=== PATIENT | male | born 1945 | race Caucasian/White ===

== ENCOUNTER 2017-10-28 07:49 | Day surgery (SDC) | payer MEDICARE, OTHER ==
[~2017-10-28] VITALS: Ht 167.6 cm; Wt 96.4 kg
[~2017-10-28 07:49] MED LIST: ASPI325; ASPI500 PO; FINA5 PO; FISH OIL 1,2001 EAC1 PO; FURO20; GLIM2 PO; LISI20 PO; LISINOPRIL PO; METF500 PO; MULVITMIND PO; NAPR220; NIAC500 PO; POTA10T; SIMVASTATIN PO; SOMA250 MG PO; TAMS.4ER PO
== END 2017-10-28 10:05 | disposition home or self-care (01) ==
LOC: ORSCSDS 07:49
DX: Z12.11 Encounter for screening for malignant neoplasm of colon (principal); D12.4 Benign neoplasm of descending colon; D12.2 Benign neoplasm of ascending colon; K63.5 Polyp of colon; K64.8 Other hemorrhoids; K57.30 Diverticulosis of large intestine without perforation or abscess without bleeding; Z86.010 Personal history of colon polyps; Z86.73 Personal history of transient ischemic attack (TIA), and cerebral infarction without residual deficits; E66.9 Obesity, unspecified; E11.9 Type 2 diabetes mellitus without complications; F17.210 Nicotine dependence, cigarettes, uncomplicated; Z68.34 Body mass index [BMI] 34.0-34.9, adult; Z79.82 Long term (current) use of aspirin; Z79.899 Other long term (current) drug therapy
CPT/HCPCS: 82947; 88305; J7120

== ENCOUNTER → 2020-03-27 | Outpatient (CLI) | payer MEDICARE, OTHER | END | disposition home or self-care (01) | LOC: PLD 08:24 → LAB SHORT 08:24 | DX: C44.529 Squamous cell carcinoma of skin of other part of trunk (principal); L81.4 Other melanin hyperpigmentation | CPT/HCPCS: 88305 ==

== ENCOUNTER → 2020-04-08 | Outpatient (CLI) | payer MEDICARE, OTHER | END | disposition home or self-care (01) | LOC: PLD 08:23 → LAB SHORT 08:23 | DX: C44.82 Squamous cell carcinoma of overlapping sites of skin (principal) | CPT/HCPCS: 88305 ==

== ENCOUNTER → 2020-12-23 | Outpatient (CLI) | payer MEDICARE, OTHER | END | disposition home or self-care (01) | LOC: LAB SHORT 12:26 → LAB 12:26 | DX: L57.0 Actinic keratosis (principal) | CPT/HCPCS: 88305 ==

== ENCOUNTER → 2021-01-06 | Outpatient (CLI) | payer MEDICARE, OTHER | LOC: LAB SHORT 07:56 → LAB 07:56 | DX: D48.5 Neoplasm of uncertain behavior of skin (principal); L81.4 Other melanin hyperpigmentation | CPT/HCPCS: 88305 ==

== ENCOUNTER 2021-09-30 08:14 | Day surgery (SDC) | payer MEDICARE, OTHER ==
[~2021-09-30] VITALS: Ht 167.6 cm; Wt 82.1 kg
[~2021-09-30 08:14] MED LIST changes: +AMLO5 PO; +ATOR80 PO; +FISH OIL 1,2001 EAC4 PO; -FURO20; +FURO20 PO; +GABA300 PO; +LISI5 PO; +SUCROFERRIC OXYHYDROXIDE PO
[2021-09-30] MEDS ORDERED: VITAMIN D3 MA125 MCG (08:41)
[2021-09-30] MEDS ORDERED: Rena-Vite Tabl0.8 MG (08:45)
--- NOTE | 2021-09-30 09:15 | NUR ---
09/30/21 0915 TIFFANIE BORJAS TRIED ON RW INFILTRATED. PUT ON RFA AND WORKED WELL
--- NOTE | 2021-09-30 09:57 | NUR ---
09/30/21 0957 PARUL VELAZQUEZ PREP.END NOTE
== END 2021-09-30 10:35 | disposition home or self-care (01) ==
LOC: ORSCSDS 08:14
PROVIDERS: Internal Medicine Gastroenterology
PROC: 0DJD8ZZ Inspection of Lower Intestinal Tract, Via Natural or Artificial Opening Endoscopic (ICD-10-PCS; principal; 2021-09-30 09:30)
DX: Z12.11 Encounter for screening for malignant neoplasm of colon (principal); Z86.010 Personal history of colon polyps; I10 Essential (primary) hypertension; E11.9 Type 2 diabetes mellitus without complications; Z86.73 Personal history of transient ischemic attack (TIA), and cerebral infarction without residual deficits; I63.9 Cerebral infarction, unspecified; Z87.891 Personal history of nicotine dependence; Z79.899 Other long term (current) drug therapy
CPT/HCPCS: 82947; J2704; J7120

== ENCOUNTER 2022-01-13 10:49 | Day surgery (SDC) | payer MEDICARE, OTHER ==
[~2022-01-13] VITALS: Ht 167.6 cm; Wt 77.5 kg
[~2022-01-13 10:49] MED LIST changes: +Rena-Vite Tabl0.8 MG; +VITAMIN D3 MA125 MCG
== END 2022-01-13 14:10 | disposition home or self-care (01) ==
LOC: ORSCSDS 10:49
DX: Z86.010 Personal history of colon polyps (principal); D12.3 Benign neoplasm of transverse colon; D12.2 Benign neoplasm of ascending colon; K63.5 Polyp of colon; K62.1 Rectal polyp; K57.30 Diverticulosis of large intestine without perforation or abscess without bleeding; K64.4 Residual hemorrhoidal skin tags; K63.89 Other specified diseases of intestine; I12.9 Hypertensive chronic kidney disease with stage 1 through stage 4 chronic kidney disease, or unspecified chronic kidney disease; N18.9 Chronic kidney disease, unspecified; F17.210 Nicotine dependence, cigarettes, uncomplicated; Z86.73 Personal history of transient ischemic attack (TIA), and cerebral infarction without residual deficits; Z79.899 Other long term (current) drug therapy
CPT/HCPCS: 82947; 88305; 93005; 93010; J2704; J7120

== ENCOUNTER 2022-04-14 15:02 | Inpatient (IN) | payer MEDICARE, OTHER ==
[~2022-04-14] VITALS: Ht 170.2 cm; Wt 89.6 kg
[2022-04-14 16:57] LABS: BASOPHILS ABSOLUTE AUTO 0.05 K/mm3 (0.00-0.23); BASOPHILS PERCENT AUTO 0 % (0-2); EOSINOPHILS ABSOLUTE AUTO 0.16 K/mm3 (0.00-0.68); EOSINOPHILS PERCENT AUTO 1 % (0-6); Hematocrit 31.7 % (37.0-53.0); Hemoglobin 10.6 g/dL (13.5-17.5); IMMATURE GRAN ABSOLUTE AUTO 0.04 K/mm3 (0.00-0.10); IMMATURE GRAN PERCENT AUTO 0 % (0-1); LYMPHOCYTES ABSOLUTE AUTO 0.93 K/mm3 (0.84-5.20); LYMPHOCYTES PERCENT AUTO 8 % (21-46); MONOCYTES PERCENT AUTO 7 % (4-13); Mean Corpuscular HGB 30.9 pg (26.0-34.0); Mean Corpuscular HGB Conc 33.4 g/dL (31.5-36.5); Mean Corpuscular Volume 92 fL (80-100); Mean Platelet Volume 9.4 fL (9.1-12.4); NEUTROPHILS ABSOLUTE AUTO 9.25 K/mm3 (1.96-9.15); NEUTROPHILS PERCENT AUTO 82 % (41-73); Platelet Count 241 K/mm3 (150-400); RDW Coefficient Variation 13.2 % (11.7-14.2); RDW Standard Deviation 45.2 fL (35.1-46.3); Red Blood Cell Count 3.43 M/mm3 (4.30-5.90); White Blood Cell Count 11.23 K/mm3 (4.00-11.30)
[2022-04-14 17:05] LABS: Calcium, Ionized (POC) 1.07 mmol/L (1.10-1.46); Chloride (POC) 113 mmol/L (98-108); Creatinine (POC) 16.2 mg/dL (0.8-1.3); Glucose (ISTAT POC) 121 mg/dL (70-99); Hemoglobin (POC) 10.5 g/dL (13.5-17.5); Potassium (POC) 6.4 mmol/L (3.5-5.5); Sodium (POC) 140 mmol/L (135-148); Total CO2 (POC) 18 mmol/L (21-32)
[2022-04-14 17:26] LABS: Albumin, Blood 2.6 g/dL (3.4-5.0); Albumin/Globulin Ratio 0.5 (0.8-1.8); Bilirubin, Total 0.6 mg/dL (0.1-1.0); Bun/Creatinine Ratio 9.9 (12.0-20.0); Creatinine, Blood 14.8 mg/dL (0.60-1.20); Globulin, Blood 5.2 g/dL (2.2-4.0); Potassium, Blood 6.4 mmol/L (3.5-5.5); Total Protein, Blood 7.8 g/dL (6.4-8.2)
[2022-04-14 20:54] LABS: Influenza A, PCR NEGATIVE (NEGATIVE); Influenza B, PCR NEGATIVE (NEGATIVE); SARS-Cov-2 (COVID-19) PCR, MMC NEGATIVE (NEGATIVE)
[2022-04-14 21:02] LABS: Resp Syncytial Virus, PCR POSITIVE (NEGATIVE)
[2022-04-14] MEDS ORDERED: AMLO10 PO (21:44)
[2022-04-14] MEDS ORDERED: LISI5 PO (21:46)
[2022-04-14 21:49] LABS: Base Excess Venous -14.3 mmol/L; Bicarbonate Venous 14.3 mmol/L (24.0-30.0); PCO2 Venous 31.7 mmHg (38-42)
[2022-04-14 21:50] LABS: pH Blood Venous 7.23 (7.34-7.37)
[2022-04-15 02:10] LABS: BASOPHILS ABSOLUTE AUTO 0.05 K/mm3 (0.00-0.23); BASOPHILS PERCENT AUTO 1 % (0-2); EOSINOPHILS ABSOLUTE AUTO 0.09 K/mm3 (0.00-0.68); EOSINOPHILS PERCENT AUTO 1 % (0-6); Hematocrit 29.9 % (37.0-53.0); Hemoglobin 10.4 g/dL (13.5-17.5); IMMATURE GRAN ABSOLUTE AUTO 0.05 K/mm3 (0.00-0.10); IMMATURE GRAN PERCENT AUTO 1 % (0-1); LYMPHOCYTES ABSOLUTE AUTO 0.86 K/mm3 (0.84-5.20); LYMPHOCYTES PERCENT AUTO 9 % (21-46); MONOCYTES ABSOLUTE AUTO 0.78 K/mm3 (0.16-1.47); MONOCYTES PERCENT AUTO 8 % (4-13); Mean Corpuscular HGB 31.6 pg (26.0-34.0); Mean Corpuscular HGB Conc 34.8 g/dL (31.5-36.5); Mean Corpuscular Volume 91 fL (80-100); Mean Platelet Volume 9.3 fL (9.1-12.4); NEUTROPHILS ABSOLUTE AUTO 7.99 K/mm3 (1.96-9.15); NEUTROPHILS PERCENT AUTO 81 % (41-73); Platelet Count 211 K/mm3 (150-400); RDW Coefficient Variation 13.2 % (11.7-14.2); RDW Standard Deviation 44.4 fL (35.1-46.3); Red Blood Cell Count 3.29 M/mm3 (4.30-5.90); White Blood Cell Count 9.82 K/mm3 (4.00-11.30)
[2022-04-15 02:53] LABS: Magnesium, Blood 3.2 mg/dL (1.6-2.4)
[2022-04-15 02:56] LABS: Albumin, Blood 2.5 g/dL (3.4-5.0); Albumin/Globulin Ratio 0.5 (0.8-1.8); Bilirubin, Total 0.7 mg/dL (0.1-1.0); Bun/Creatinine Ratio 9.6 (12.0-20.0); Calcium, Blood 8.7 mg/dL (8.5-10.1); Creatinine, Blood 11.7 mg/dL (0.60-1.20); Phosphorus, Blood 8.3 mg/dL (2.5-4.9); Potassium, Blood 4.9 mmol/L (3.5-5.5); Total Protein, Blood 7.5 g/dL (6.4-8.2)
--- NOTE | 2022-04-15 05:17 | NUR ---
SHIFT SUMMARY I ASSUMED CARE OF THE PT AROUND 2230 LAST NIGHT. HE WAS RECIEVING DIALYSIS AND STARTED TO BECOME RESTLESS, TACHYCARDIC TO THE 160'S, AND HIS BLOOD PRESSURE WAS BOUNCING ALL OVER THE PLACE. HE WAS GIVEN 5MG LOPRESSOR IV AND THE DIALYSIS NURSE STOPPED HIS DIALYSIS. HE RAN FOR ABOUT 80/120MINS. THE PT BECAME LESS TACHYCARDIC, IS NO LONGER RESTLESS, AND HIS BP HAS STARTED TO STABLE OUT AFTER STOPPING DIALYSIS AND GETTING 5MG IV LOPRESSOR. PT IS ALERT AND ORIENTED TO SELF AND FOLLOWS COMMANDS, BUT IS CONFUSED. HE IS NOT ORIENTED AND IS UNABLE TO ANSWER HISTORY QUESTIONS AT THIS TIME. PT IS AFIB 110'S-150'S ON TELEMETRY, SPO2 >90% RA, AND HAS DENIED ANGINA/SOB/N/V. PT HAS BEEN INC DURING THE NIGHT, AND IS A 1P ROLL TO CHANGE. HE MOVES AROUND IND IN BED, BED ALARM ON, BED IN LOW, AND CALL LIGHT IS IN REACH. WILL CONTINUE TO MONITOR UNTIL SHIFT REPORT IS GIVEN TO THE ONCOMING SHIFT RN. SEE NOTES FOR ANY UPDATES
--- NOTE | 2022-04-15 05:48 | NUR ---
TELEMETRY CHANGE PT CONVERTED FROM AFIB 110-150'S TO SR 60'S-70'S AT 0525. PT WAS SLEEPING AT THIS TIME.
--- NOTE | 2022-04-15 17:49 | NUR ---
SHIFT SUMMARY PT HAS BEEN RESTING QUIETLY IN ROOM. PT HAS BEEN ORIENTED TO SELF AND PERSON AND DEMONSTRATED AN INCREASED LEVEL OF CONFUSION IN THE AFTERNOON. PT WAS REDIRECTABLE BUT STILL NOT REORIENTABLE. HEMODIALYSIS WAS PERFORMED IN ROOM. FAMILY MEMBER SPENT SOME TIME AT THE BEDSIDE. VITAL SIGNS HAVE REMAINED STABLE AND WITHIN PT TRENDS.
--- NOTE | 2022-04-15 23:56 | NUR ---
AGITATION AT 0000 VITALS THE PATIENT WAS SLEEPING AND WAS WOKEN UP TO BE CHANGED AND TO OBTAIN A SET OF VITAL SIGNS. HE WAS VERY AGITATED AND HIT STAFF. IT TOOK THREE STAFF MEMBERS TO PROVIDE CARE.THE PT IS NO LONGER BEING COOPERATIVE OR FOLLOWING DIRECTIONS. PT WAS NOT ABLE TO ANSWER ANY ORIENTATION QUESTIONS AT THIS TIME. SITUATION WAS DISCUSSED W/ THE CHARGE NURSE. DUE TO THE PATIENT NOT SLEEPING VERY WELL THE LAST FEW DAYS, WE ARE GOING TO LET HIM REST AND REASSESS. BED IN LOW, THREE SIDE RAILS UP, CALL LIGHT IN REACH, BED ALARM ON. SEE NOTES FOR ANY UPDATES.
--- NOTE | 2022-04-16 05:00 | NUR ---
SHIFT SUMMARY PT WAS A&OX2 AT THE BEGINNING OF THE SHIFT. AT 0000 HE WAS ONLY ALERT TO VERBAL STIMULI AND COULD NOT ANSWER ANY ORIENTATION QUESTIONS. SEE PREVIOUS NOTE FOR MORE INFORMATION. DURING 0400 VS, HE WAS ABLE TO ANSWER SOME ORIENTATION QUESTIONS (SELF, PERSON, FOLLOW COMMANDS). HE APPEARS TO BE MORE COOPERATIVE W/ MALE STAFF. HE HAS HAD ONE INC EPISODE DURING THE NIGHT AND NEEDED 2-3P ASSIST TO WARE EHIM DUE TO AGITATION. PT HAS SLEPT MOST OF THE NIGHT, BEEN SB/SR 50'S-60'S ON TELEMETRY, SP02>90% ON RA, AND DENIES ANGINA/SOB. BED IS IN LOW, THREE SIDE RAILS UP, BED ALARM ON. WILL CONTINUE TO MONITOR UNTIL SHIFT RPOERT IS GIVEN TO THE ONCOMING SHIFT RN. SEE NOTES FOR ANY UPDATES.
[2022-04-16 05:03] LABS: BASOPHILS ABSOLUTE AUTO 0.02 K/mm3 (0.00-0.23); BASOPHILS PERCENT AUTO 0 % (0-2); EOSINOPHILS ABSOLUTE AUTO 0.35 K/mm3 (0.00-0.68); EOSINOPHILS PERCENT AUTO 5 % (0-6); Hematocrit 30.2 % (37.0-53.0); Hemoglobin 10.5 g/dL (13.5-17.5); IMMATURE GRAN ABSOLUTE AUTO 0.02 K/mm3 (0.00-0.10); IMMATURE GRAN PERCENT AUTO 0 % (0-1); LYMPHOCYTES ABSOLUTE AUTO 1.22 K/mm3 (0.84-5.20); LYMPHOCYTES PERCENT AUTO 17 % (21-46); MONOCYTES ABSOLUTE AUTO 0.75 K/mm3 (0.16-1.47); MONOCYTES PERCENT AUTO 11 % (4-13); Mean Corpuscular HGB 30.9 pg (26.0-34.0); Mean Corpuscular HGB Conc 34.8 g/dL (31.5-36.5); Mean Corpuscular Volume 89 fL (80-100); Mean Platelet Volume 9.5 fL (9.1-12.4); NEUTROPHILS ABSOLUTE AUTO 4.69 K/mm3 (1.96-9.15); NEUTROPHILS PERCENT AUTO 67 % (41-73); Platelet Count 274 K/mm3 (150-400); RDW Standard Deviation 42.2 fL (35.1-46.3); White Blood Cell Count 7.05 K/mm3 (4.00-11.30)
[2022-04-16 05:40] LABS: Magnesium, Blood 2.8 mg/dL (1.6-2.4)
[2022-04-16 06:06] LABS: Albumin, Blood 2.3 g/dL (3.4-5.0); Anion Gap 11 mmol/L (6-16); Blood Urea Nitrogen 72 mg/dL (8-24); CO2, Blood 28 mmol/L (21-32); Calcium, Blood 8.2 mg/dL (8.5-10.1); Chloride, Blood 97 mmol/L (98-108); Glucose, Blood 110 mg/dL (70-99); Potassium, Blood 4.4 mmol/L (3.5-5.5); Sodium, Blood 136 mmol/L (136-145)
[2022-04-16 06:27] LABS: Bun/Creatinine Ratio 8.7 (12.0-20.0); Creatinine, Blood 8.25 mg/dL (0.60-1.20); Glomerular Filtration Rate 6 (60-); Phosphorus, Blood 8.3 mg/dL (2.5-4.9)
--- NOTE | 2022-04-16 18:34 | NUR ---
REPORT GIVEN TO MEDICAL FLOOR RN AT 0684.
--- NOTE | 2022-04-16 18:45 | NUR ---
pt arrives to the medical floor via PCU bed propelled by two PCU staff. he is room air. Dialysis fistula in LFA. IV access to RFA. A&o x3. Pleasant and cooperative with staff. ISO for RSV. RN gave report to oncoming nurse.
--- NOTE | 2022-04-16 19:22 | NUR ---
SHIFT SUMMARY/ TRANSFER UPDATE PT A/OX2-3 AND COOPERATIVE OF CARE. VSS THROUGHOUT SHIFT WITH O2 SATS IN THE 90'S ON RA. NO REPORT OF CHEST PAIN/PRESSURE THROUGHOUT SHIFT. NO REPORT OF SOB/DSYPNEA THROUGHOUTH SHIFT. PT SEEN BY PHYSICAL THERAPY, SEE THERAPIST NOTES. PT DID NOT EAT BOTH HIS LUNCH AND DINNER, STATES "I'M JUST NOT REALLY HUNGRY." PT BROTHER VISITED TODAY AND REPORTED THAT THE PT MENTATION HAS "IMPROVED SINCE YESTERDAY," BUT ALSO STATES "I AM NOT READY FOR HIM TO BE HOME YET." PT TRANSFERED TO MEDICAL FLOOR AT 1850 VIA HOSPITAL BED AND ON RA. PT BELONGINGS IN BAGS AND TRANSFERED WITH PT. PT CHART TRANFERED WITH PT ALONG WITH MEDS.
--- NOTE | 2022-04-17 03:52 | NUR ---
SHIFT SUMMARY PCU TRANSFER [facility]. A&O X 3-4. VSS. PLEASANT AND COOPERATIVE WITH STAFF. CALLS APPROPRIATELY. DENIES PAIN. STANDBY ASSIST TO BATHROOM. BED ALARM ON. WILL CONTINUE TO MONITOR AND FOLLOW PLAN OF CARE.
[2022-04-17 07:00] LABS: Hematocrit 32.6 % (37.0-53.0); Hemoglobin 11.4 g/dL (13.5-17.5)
[2022-04-17 08:04] LABS: Albumin, Blood 2.6 g/dL (3.4-5.0); Anion Gap 15 mmol/L (6-16); Blood Urea Nitrogen 99 mg/dL (8-24); Bun/Creatinine Ratio 10.2 (12.0-20.0); CO2, Blood 22 mmol/L (21-32); Calcium, Blood 8.7 mg/dL (8.5-10.1); Chloride, Blood 94 mmol/L (98-108); Creatinine, Blood 9.67 mg/dL (0.60-1.20); Glomerular Filtration Rate 5 (60-); Glucose, Blood 195 mg/dL (70-99); Potassium, Blood 5.3 mmol/L (3.5-5.5); Sodium, Blood 131 mmol/L (136-145)
[2022-04-17 08:58] LABS: Phosphorus, Blood 10.6 mg/dL (2.5-4.9)
--- NOTE | 2022-04-17 17:40 | NUR ---
SHIFT SUMMARY A/OX3, FORGETFUL AT TIMES, BED ALARM IN PLACE FOR SAFETY. SBA TO BATHROOM. DENIES PAIN OR SOB. L. ARM FISTULA, DIALYSIS COMPLETED TODAY. VSS, NO ACUTE CHANGES AT THIS TIME. BED IN LOWEST POSITION WITH CALL LIGHT IN REACH. WILL CONTINUE TO MONITOR AND REPORT TO ONCOMING RN.
--- NOTE | 2022-04-18 03:57 | NUR ---
SUMMARY: PATIENT DID WELL OVERNIGHT. NO ACUTE EVENTS. SLEPT THROUGHOUT NIGHT. VSS. COMPLIANT WITH ALL CARE. PATIENT A LITTLE FORGETFUL BUT AOX3-4. FISTULA IN L ARM DRESSING CLEAN, DRY AND INTACT. TURNS SELF INDEPENDENTLY IN BED.
[2022-04-18 06:19] LABS: Hematocrit 31.7 % (37.0-53.0); Hemoglobin 10.9 g/dL (13.5-17.5)
[2022-04-18 06:42] LABS: Albumin, Blood 2.5 g/dL (3.4-5.0); Anion Gap 11 mmol/L (6-16); Blood Urea Nitrogen 61 mg/dL (8-24); Bun/Creatinine Ratio 8.4 (12.0-20.0); CO2, Blood 31 mmol/L (21-32); Calcium, Blood 8.7 mg/dL (8.5-10.1); Chloride, Blood 97 mmol/L (98-108); Creatinine, Blood 7.27 mg/dL (0.60-1.20); Glomerular Filtration Rate 7 (60-); Glucose, Blood 170 mg/dL (70-99); Magnesium, Blood 2.6 mg/dL (1.6-2.4); Potassium, Blood 4.6 mmol/L (3.5-5.5); Sodium, Blood 139 mmol/L (136-145)
[2022-04-18 06:56] LABS: Phosphorus, Blood 6.8 mg/dL (2.5-4.9)
[2022-04-18] MEDS ORDERED: Calcium Acetat667 MG PO (14:44)
[2022-04-18] MEDS ORDERED: SEVEC800 PO (14:46)
--- NOTE | 2022-04-18 15:41 | NUR ---
DISCHARGE PT D/C'D VIA PRIVATE VEHICLE, BELONGINGS SENT WITH PT
== END 2022-04-18 16:37 | disposition home or self-care (01) | DRG 91 ==
LOC: ER 15:02 → PCU 15:03 → MEDS 04-16 18:53
PROVIDERS: Family Medicine; Internal Medicine Nephrology; Physician Assistant; Student in an Organized Health Care Education/Training Program; ADMIT Internal Medicine
PROC: 5A1D70Z Performance of Urinary Filtration, Intermittent, Less than 6 Hours Per Day (ICD-10-PCS; principal; 2022-04-15)
DX: G92.8 Other toxic encephalopathy (principal); N18.6 End stage renal disease; I12.0 Hypertensive chronic kidney disease with stage 5 chronic kidney disease or end stage renal disease; E87.20 Acidosis, unspecified; N25.81 Secondary hyperparathyroidism of renal origin; D63.1 Anemia in chronic kidney disease; Z51.5 Encounter for palliative care; E87.5 Hyperkalemia; J20.5 Acute bronchitis due to respiratory syncytial virus; E10.22 Type 1 diabetes mellitus with diabetic chronic kidney disease; Z20.822 Contact with and (suspected) exposure to COVID-19; F17.210 Nicotine dependence, cigarettes, uncomplicated; E83.41 Hypermagnesemia; E88.09 Other disorders of plasma-protein metabolism, not elsewhere classified; E83.39 Other disorders of phosphorus metabolism; Z99.2 Dependence on renal dialysis; Z79.4 Long term (current) use of insulin; Z79.899 Other long term (current) drug therapy; Z79.811 Long term (current) use of aromatase inhibitors; Z79.02 Long term (current) use of antithrombotics/antiplatelets; Z79.01 Long term (current) use of anticoagulants; Z98.890 Other specified postprocedural states; Z91.15 Patient's noncompliance with renal dialysis
CPT/HCPCS: 0241U; 36415; 70450; 80047; 80053; 80069; 82803; 82947; 83735; 84100; 84443; 85014; 85018; 85025; 86850; 86900; 86901; 93005; 93010; 94644; 94664; 96372; 96374; 96375; 97110; 97116; 97162; 97530; 99285-25; A9270; G0378; J0610; J0881; J1644; J1815; J2930; J7799

== ENCOUNTER → 2022-04-23 | Outpatient (CLI) | payer MEDICARE, OTHER ==
[~2022-04-23] MED LIST changes: +AMLO10 PO; +Calcium Acetat667 MG PO; +SEVEC800 PO
[2022-04-23 12:33] LABS: Hematocrit 35.8 % (37.0-53.0); Hemoglobin 11.9 g/dL (13.5-17.5)
[2022-04-23 13:16] LABS: Albumin, Blood 2.9 g/dL (3.4-5.0); Anion Gap 9 mmol/L (6-16); Blood Urea Nitrogen 36 mg/dL (8-24); Bun/Creatinine Ratio 4.9 (12.0-20.0); CO2, Blood 34 mmol/L (21-32); Calcium, Blood 8.8 mg/dL (8.5-10.1); Chloride, Blood 94 mmol/L (98-108); Creatinine, Blood 7.42 mg/dL (0.60-1.20); Glomerular Filtration Rate 7 (60-); Glucose, Blood 261 mg/dL (70-99); Phosphorus, Blood 7.5 mg/dL (2.5-4.9); Potassium, Blood 3.6 mmol/L (3.5-5.5); Sodium, Blood 137 mmol/L (136-145)
== END | disposition home or self-care (01) ==
LOC: LAB SHORT 12:27
PROVIDERS: Physician Assistant
DX: E11.22 Type 2 diabetes mellitus with diabetic chronic kidney disease (principal); N18.4 Chronic kidney disease, stage 4 (severe); D63.8 Anemia in other chronic diseases classified elsewhere
CPT/HCPCS: 80069; 85014; 85018

== ENCOUNTER 2022-05-18 09:08 | Emergency (ER) | payer MEDICARE, OTHER ==
[~2022-05-18] VITALS: Ht 167.6 cm; Wt 83.9 kg
[2022-05-18 14:24] LABS: Influenza A, PCR NEGATIVE (NEGATIVE); Influenza B, PCR NEGATIVE (NEGATIVE); Resp Syncytial Virus, PCR NEGATIVE (NEGATIVE); SARS-Cov-2 (COVID-19) PCR, MMC NEGATIVE (NEGATIVE)
[2022-05-20 07:55] LABS: Calcium, Ionized (POC) 1.01 mmol/L (1.10-1.46); Chloride (POC) 100 mmol/L (98-108); Creatinine (POC) 8.7 mg/dL (0.8-1.3); Glucose (ISTAT POC) 50 mg/dL (70-99); Hemoglobin (POC) 10.5 g/dL (13.5-17.5); Potassium (POC) 5.6 mmol/L (3.5-5.5); Sodium (POC) 136 mmol/L (135-148); Total CO2 (POC) 29 mmol/L (21-32)
== END 2022-05-18 19:53 ==
LOC: ER 09:08
PROVIDERS: Student in an Organized Health Care Education/Training Program
DX: R26.2 Difficulty in walking, not elsewhere classified (principal); M16.11 Unilateral primary osteoarthritis, right hip; I12.0 Hypertensive chronic kidney disease with stage 5 chronic kidney disease or end stage renal disease; E10.22 Type 1 diabetes mellitus with diabetic chronic kidney disease; E10.649 Type 1 diabetes mellitus with hypoglycemia without coma; E10.40 Type 1 diabetes mellitus with diabetic neuropathy, unspecified; N18.6 End stage renal disease; E78.5 Hyperlipidemia, unspecified; N40.0 Benign prostatic hyperplasia without lower urinary tract symptoms; W18.30XA Fall on same level, unspecified, initial encounter; Z86.73 Personal history of transient ischemic attack (TIA), and cerebral infarction without residual deficits; F17.210 Nicotine dependence, cigarettes, uncomplicated; Z99.2 Dependence on renal dialysis; Z79.899 Other long term (current) drug therapy; Z79.84 Long term (current) use of oral hypoglycemic drugs; Z20.822 Contact with and (suspected) exposure to COVID-19
CPT/HCPCS: 0241U; 36415; 70450; 73502; 80047; 82947; 85014; 97116; 97162; 97530; A9270